=== PATIENT | female | born 1965 | race Two or more races ===

== ENCOUNTER 2018-02-27 00:46 | Inpatient (IN) | payer OTHER ==
[~2018-02-27] VITALS: Ht 154.9 cm; Wt 78.8 kg
[2018-02-27] MEDS ORDERED: SODIUM CHLORIDE 0.9% 1,000ML IVBOLUS ONE (01:30)
[2018-02-27 01:54] LABS: MEAN CORPUSCULAR HEMOGLOBIN 26.2 pg (27.0-34.8); MEAN CORPUSCULAR HGB CONC 32.1 g/dL (32.4-35.8); MEAN CORPUSCULAR VOLUME 81.7 fL (80-100); MEAN PLATELET VOLUME 10.6 fL (7.4-10.4); PLATELET COUNT 210 x10^3/uL (130-400); RED CELL DISTRIBUTION WIDTH 14.8 % (9.6-15.2)
[2018-02-27 02:02] LABS: ALANINE AMINOTRANSFERASE 16 U/L (12-78); ANION GAP 14 mmol/L (5-15); CALCIUM 8.9 mg/dL (8.5-10.1); CHLORIDE 94 mmol/L (98-107)
[2018-02-27 02:05] LABS: ALKALINE PHOSPHATASE 277 U/L (45-117); BILIRUBIN,TOTAL 0.6 mg/dL (0.2-1.0); TOTAL PROTEIN 6.7 g/dL (6.4-8.2)
[2018-02-27 02:09] LABS: MD YES
[2018-02-27 02:10] LABS: BAND#(MANUAL) 0.53 x10^3/uL; BANDS%(MANUAL) 3 % (0-7); LYMPH#(MANUAL) 0.36 x10^3/uL (1-3.4); LYMPHS% (MANUAL) 2 % (22-44); SEG#(MANUAL) 16.91 x10^3/uL (1.8-6.8); SEGS% (MANUAL) 95 % (42-75)
[2018-02-27 02:11] LABS: <PLATELET ESTIMATE> ADEQUATE; ANISOCYTOSIS 1+; LARGE PLATELETS 1+
[2018-02-27] MEDS ORDERED: INSULIN REGULAR 100 UNITS/ML, 3ML VIAL ONE (02:51)
[2018-02-27] MEDS ORDERED: INSULIN REGULAR 100 UNITS/ML, 3ML VIAL IVPush ONE (03:00)
[2018-02-27] MEDS ORDERED: SODIUM CHLORIDE 0.9% 1,000 ML IV ONE (03:08)
[2018-02-27] MEDS ORDERED: ONDANSETRON 2MG/ML, 2ML IVPush PRN (03:30)
[2018-02-27] MEDS ORDERED: MORPHINE SULFATE 4 MG/ML, 1ML IVPush PRN ×2 (03:30→05:00)
[2018-02-27 03:50] VITALS: BP 119/69
[2018-02-27] MEDS ORDERED: CEFTRIAXONE 1,000 MG in SODIUM CHLORIDE 0.9% 50 ML IV SCH (05:00)
[2018-02-27] MEDS ORDERED: GLUCAGON 1 MG IM PRN (05:30)
[2018-02-27] MEDS ORDERED: DEXTROSE 4 GM TAB.CHEW PO PRN (05:30)
[2018-02-27] MEDS ORDERED: DEXTROSE 50%, 50ML SYRINGE IVPush PRN (05:30)
[2018-02-27] MEDS: INSULIN LISPRO 100 UNITS/ML, PEN SQ-INSULIN SCH ×4 (06:07→21:54)
[2018-02-27 06:16] LABS: MEAN CORPUSCULAR HEMOGLOBIN 26.7 pg (27.0-34.8); MEAN CORPUSCULAR HGB CONC 32.1 g/dL (32.4-35.8); MEAN CORPUSCULAR VOLUME 83.1 fL (80-100); MEAN PLATELET VOLUME 10.7 fL (7.4-10.4); PLATELET COUNT 208 x10^3/uL (130-400); RED BLOOD COUNT 3.69 x10^6/uL (3.82-5.3); RED CELL DISTRIBUTION WIDTH 14.7 % (9.6-15.2)
[2018-02-27 06:31] LABS: ANION GAP 13 mmol/L (5-15); CALCIUM 8.5 mg/dL (8.5-10.1); CHLORIDE 100 mmol/L (98-107); CREATININE 1.47 mg/dL (0.55-1.02)
[2018-02-27] MEDS: PIPERACILLIN/TAZO/PMX 3.375GM 50 ML IV SCH ×3 (06:32→22:15)
[2018-02-27 06:49] LABS: BASOPHILS % (AUTO) 0 % (0-1); EOSINOPHILS % (AUTO) 0 % (1-7); LYMPHOCYTES # (AUTO) 0.58 x10^3/uL (1-3.4); LYMPHOCYTES % (AUTO) 3 % (22-44); MD SCAN; MONOCYTES % (AUTO) 5 % (2-9); NEUTROPHILS # (AUTO) 18.67 x10^3/uL (1.8-6.8); NEUTROPHILS % (AUTO) 92 % (42-75)
[2018-02-27 07:10] LABS: HEMOGLOBIN A1C 15.2 % (4.2-6.3)
[2018-02-27 07:44] VITALS: BP 122/74
[2018-02-27] MEDS: SODIUM CHLORIDE FLUSH 10ML SYR IVF SCH ×2 (09:00→21:00)
[2018-02-27 12:49] VITALS: BP 129/76
[2018-02-27] MEDS: ACETAMINOPHEN 325 MG TABLET PO PRN (18:13)
[2018-02-27] MEDS: ONDANSETRON 2MG/ML, 2ML IVPush PRN (18:13)
[2018-02-27 20:00] VITALS: BP 132/76
[2018-02-27] MEDS: INSULIN GLARGINE 100 UNITS/ML, PEN SQ-INSULIN SCH (21:54)
[2018-02-27 22:41] LABS: POTASSIUM,URINE RANDOM 55 mmol/L; SODIUM,URINE RANDOM 10 mmol/L
[2018-02-27 22:42] LABS: CHLORIDE,URINE RANDOM < 10 mmol/L
[2018-02-27 22:46] LABS: CULTURE INDICATED? YES; MICROSCOPIC INDICATED
[2018-02-28 01:50] VITALS: BP 130/77
[2018-02-28 06:03] LABS: MEAN CORPUSCULAR HEMOGLOBIN 27.1 pg (27.0-34.8); MEAN CORPUSCULAR VOLUME 82.1 fL (80-100); MEAN PLATELET VOLUME 11.2 fL (7.4-10.4); PLATELET COUNT 237 x10^3/uL (130-400); RED BLOOD COUNT 3.09 x10^6/uL (3.82-5.3); RED CELL DISTRIBUTION WIDTH 14.5 % (9.6-15.2)
[2018-02-28] MEDS: PIPERACILLIN/TAZO/PMX 3.375GM 50 ML IV SCH (06:13)
[2018-02-28 06:14] LABS: ALANINE AMINOTRANSFERASE 52 U/L (12-78); ALBUMIN 1.7 g/dL (3.4-5.0); ANION GAP 11 mmol/L (5-15); CALCIUM 8.2 mg/dL (8.5-10.1); CHLORIDE 96 mmol/L (98-107)
[2018-02-28 06:16] LABS: ALKALINE PHOSPHATASE 509 U/L (45-117); BILIRUBIN,TOTAL 0.8 mg/dL (0.2-1.0); CREATININE 2.16 mg/dL (0.55-1.02)
[2018-02-28 06:39] LABS: BASOPHILS % (AUTO) 0 % (0-1); EOSINOPHILS # (AUTO) 0.03 x10^3/uL (0-0.4); EOSINOPHILS % (AUTO) 0 % (1-7); LYMPHOCYTES % (AUTO) 6 % (22-44); MD SCAN; MONOCYTES # (AUTO) 1.09 x10^3/uL (0.2-0.8); MONOCYTES % (AUTO) 6 % (2-9); NEUTROPHILS # (AUTO) 17.09 x10^3/uL (1.8-6.8); NEUTROPHILS % (AUTO) 88 % (42-75)
[2018-02-28 06:46] VITALS: BP 128/76
[2018-02-28] MEDS: INSULIN LISPRO 100 UNITS/ML, PEN SQ-INSULIN SCH ×4 (08:36→20:15)
[2018-02-28] MEDS: SODIUM CHLORIDE 0.9% 1,000 ML IV SCH ×4 (08:36→22:30)
[2018-02-28] MEDS: SODIUM CHLORIDE FLUSH 10ML SYR IVF SCH ×2 (08:37→20:15)
[2018-02-28] MEDS: ACETAMINOPHEN 325 MG TABLET PO PRN ×2 (09:08→15:21)
[2018-02-28] MEDS: ONDANSETRON 2MG/ML, 2ML IVPush PRN ×2 (09:24→16:10)
[2018-02-28] MEDS ORDERED: CEFTRIAXONE 2 GM in SODIUM CHLORIDE 0.9% 50 ML IV SCH (12:30)
[2018-02-28 12:50] VITALS: BP 112/66
[2018-02-28 19:27] VITALS: BP 122/65
[2018-02-28] MEDS: INSULIN GLARGINE 100 UNITS/ML, PEN SQ-INSULIN SCH (20:15)
[2018-03-01 00:36] VITALS: BP 125/79
[2018-03-01] MEDS: ONDANSETRON 2MG/ML, 2ML IVPush PRN (02:12)
[2018-03-01] MEDS: ACETAMINOPHEN 325 MG TABLET PO PRN ×2 (05:08→21:06)
[2018-03-01 05:45] LABS: ANION GAP 11 mmol/L (5-15); CALCIUM 8.4 mg/dL (8.5-10.1); CHLORIDE 98 mmol/L (98-107); CREATININE 2.68 mg/dL (0.55-1.02)
[2018-03-01] MEDS: SODIUM CHLORIDE 0.9% 1,000 ML IV SCH ×4 (05:48→19:19)
[2018-03-01 06:13] LABS: BASOPHILS % (AUTO) 0 % (0-1); EOSINOPHILS # (AUTO) 0.01 x10^3/uL (0-0.4); EOSINOPHILS % (AUTO) 0 % (1-7); LYMPHOCYTES # (AUTO) 0.94 x10^3/uL (1-3.4); LYMPHOCYTES % (AUTO) 7 % (22-44); MD SCAN; MEAN CORPUSCULAR HGB CONC 32.6 g/dL (32.4-35.8); MEAN PLATELET VOLUME 10.4 fL (7.4-10.4); MONOCYTES % (AUTO) 3 % (2-9); NEUTROPHILS # (AUTO) 12.03 x10^3/uL (1.8-6.8); NEUTROPHILS % (AUTO) 90 % (42-75); PLATELET COUNT 269 x10^3/uL (130-400); RED BLOOD COUNT 3.43 x10^6/uL (3.82-5.3); RED CELL DISTRIBUTION WIDTH 15.2 % (9.6-15.2)
[2018-03-01] MEDS: INSULIN LISPRO 100 UNITS/ML, PEN SQ-INSULIN SCH ×4 (07:49→21:15)
[2018-03-01] MEDS: SODIUM CHLORIDE FLUSH 10ML SYR IVF SCH ×2 (07:51→21:06)
[2018-03-01 07:56] VITALS: BP 146/76
[2018-03-01] MEDS: ERTAPENEM 0.5 GM in SODIUM CHLORIDE 0.9% 50 ML IV SCH (12:45)
[2018-03-01 15:35] VITALS: BP 145/71
[2018-03-01 18:55] VITALS: BP 146/85
[2018-03-01] MEDS: INSULIN GLARGINE 100 UNITS/ML, PEN SQ-INSULIN SCH (21:15)
[2018-03-02 01:16] VITALS: BP 132/62
[2018-03-02] MEDS: SODIUM CHLORIDE 0.9% 1,000 ML IV SCH ×4 (04:30→17:03)
[2018-03-02 05:25] LABS: ANION GAP 10 mmol/L (5-15); CALCIUM 7.8 mg/dL (8.5-10.1); CHLORIDE 103 mmol/L (98-107); CREATININE 1.71 mg/dL (0.55-1.02)
[2018-03-02 05:46] LABS: BASOPHILS % (AUTO) 0 % (0-1); EOSINOPHILS # (AUTO) 0.02 x10^3/uL (0-0.4); EOSINOPHILS % (AUTO) 0 % (1-7); LYMPHOCYTES # (AUTO) 1.05 x10^3/uL (1-3.4); LYMPHOCYTES % (AUTO) 8 % (22-44); MD NO; MEAN CORPUSCULAR HEMOGLOBIN 27.5 pg (27.0-34.8); MEAN CORPUSCULAR HGB CONC 33.6 g/dL (32.4-35.8); MEAN PLATELET VOLUME 9.6 fL (7.4-10.4); MONOCYTES # (AUTO) 0.84 x10^3/uL (0.2-0.8); MONOCYTES % (AUTO) 7 % (2-9); NEUTROPHILS # (AUTO) 11.08 x10^3/uL (1.8-6.8); NEUTROPHILS % (AUTO) 85 % (42-75); PLATELET COUNT 311 x10^3/uL (130-400); RED BLOOD COUNT 3.05 x10^6/uL (3.82-5.3); RED CELL DISTRIBUTION WIDTH 15.1 % (9.6-15.2)
[2018-03-02 07:40] VITALS: BP 151/92
[2018-03-02] MEDS: INSULIN LISPRO 100 UNITS/ML, PEN SQ-INSULIN SCH ×4 (08:16→20:37)
[2018-03-02] MEDS: SODIUM CHLORIDE FLUSH 10ML SYR IVF SCH ×2 (08:16→20:37)
[2018-03-02] MEDS: DOCUSATE 100 MG CAPSULE PO PRN (08:17)
[2018-03-02] MEDS: ERTAPENEM 0.5 GM in SODIUM CHLORIDE 0.9% 50 ML IV SCH (11:52)
[2018-03-02 12:11] VITALS: BP 129/82
[2018-03-02] MEDS ORDERED: LIDOCAINE-MPF 1%, 2ML ONE (13:40)
[2018-03-02 20:19] VITALS: BP 152/91
[2018-03-02] MEDS: INSULIN GLARGINE 100 UNITS/ML, PEN SQ-INSULIN SCH (20:37)
[2018-03-02] MEDS: ACETAMINOPHEN 325 MG TABLET PO PRN (22:56)
[2018-03-03] MEDS: SODIUM CHLORIDE 0.9% 1,000 ML IV SCH ×4 (00:30→17:25)
[2018-03-03 00:54] VITALS: BP 149/83
[2018-03-03 06:56] VITALS: BP 166/89
[2018-03-03 08:39] LABS: MEAN CORPUSCULAR HGB CONC 34.5 g/dL (32.4-35.8); MEAN CORPUSCULAR VOLUME 81.3 fL (80-100); MEAN PLATELET VOLUME 8.8 fL (7.4-10.4); PLATELET COUNT 400 x10^3/uL (130-400); RED BLOOD COUNT 2.91 x10^6/uL (3.82-5.3)
[2018-03-03 08:40] LABS: HCT (SEDRATE) 23.6 % (34.6-47.8)
[2018-03-03 08:41] LABS: ALANINE AMINOTRANSFERASE 30 U/L (12-78); ALBUMIN 1.5 g/dL (3.4-5.0); ANION GAP 7 mmol/L (5-15); CHLORIDE 106 mmol/L (98-107); CREATININE 0.98 mg/dL (0.55-1.02)
[2018-03-03] MEDS: INSULIN LISPRO 100 UNITS/ML, PEN SQ-INSULIN SCH ×4 (08:44→20:16)
[2018-03-03] MEDS: INSULIN GLARGINE 100 UNITS/ML, PEN SQ-INSULIN SCH ×2 (08:44→20:16)
[2018-03-03] MEDS: SODIUM CHLORIDE FLUSH 10ML SYR IVF SCH ×2 (08:46→20:16)
[2018-03-03 08:48] LABS: ALKALINE PHOSPHATASE 813 U/L (45-117); BILIRUBIN,TOTAL 0.4 mg/dL (0.2-1.0); TOTAL PROTEIN 5.6 g/dL (6.4-8.2)
[2018-03-03 08:57] LABS: BASOPHILS # (AUTO) 0.06 x10^3/uL (0-0.1); BASOPHILS % (AUTO) 0 % (0-1); EOSINOPHILS # (AUTO) 0.06 x10^3/uL (0-0.4); EOSINOPHILS % (AUTO) 0 % (1-7); LYMPHOCYTES # (AUTO) 0.89 x10^3/uL (1-3.4); LYMPHOCYTES % (AUTO) 6 % (22-44); MD SCAN; MONOCYTES # (AUTO) 0.89 x10^3/uL (0.2-0.8); MONOCYTES % (AUTO) 6 % (2-9); NEUTROPHILS # (AUTO) 12.71 x10^3/uL (1.8-6.8); NEUTROPHILS % (AUTO) 87 % (42-75)
[2018-03-03] MEDS: GUAIFENESIN/COD200MG-20MG/10ML LIQUID PO PRN ×2 (09:22→23:02)
[2018-03-03] MEDS: MICAFUNGIN 100 MG in SODIUM CHLORIDE 0.9% 100 ML IV SCH (11:05)
[2018-03-03] MEDS: ERTAPENEM 0.5 GM in SODIUM CHLORIDE 0.9% 50 ML IV SCH (12:10)
[2018-03-03 12:17] VITALS: BP 158/84
[2018-03-03] MEDS ORDERED: CEFTRIAXONE 2 GM in SODIUM CHLORIDE 0.9% 50 ML IV SCH (13:00)
[2018-03-03 18:38] VITALS: BP 166/87
[2018-03-03] MEDS: DOCUSATE 100 MG CAPSULE PO PRN (19:09)
[2018-03-03] MEDS: ACETAMINOPHEN 325 MG TABLET PO PRN (23:02)
[2018-03-04] VITALS (7 sets, daily range): BP systolic 158–188; BP diastolic 77–100
[2018-03-04] MEDS: SODIUM CHLORIDE 0.9% 1,000 ML IV SCH ×2 (01:34→07:26)
[2018-03-04] MEDS: SODIUM CHLORIDE FLUSH 10ML SYR IVF SCH ×2 (08:18→20:56)
[2018-03-04] MEDS: INSULIN LISPRO 100 UNITS/ML, PEN SQ-INSULIN SCH ×4 (08:19→20:57)
[2018-03-04] MEDS: INSULIN GLARGINE 100 UNITS/ML, PEN SQ-INSULIN SCH ×2 (08:19→20:57)
[2018-03-04] MEDS: DOCUSATE 100 MG CAPSULE PO PRN ×2 (09:44→21:19)
[2018-03-04] MEDS: MICAFUNGIN 100 MG in SODIUM CHLORIDE 0.9% 100 ML IV SCH (09:44)
[2018-03-04] MEDS ORDERED: INSU100I13 SQ-INSULIN (10:56)
[2018-03-04] MEDS ORDERED: ERTA1VIA IV (10:56)
[2018-03-04] MEDS ORDERED: METO25TA35 PO (10:56)
[2018-03-04] MEDS ORDERED: METF500T5 PO (10:56)
[2018-03-04] MEDS: ERTAPENEM 1 GM in SODIUM CHLORIDE 0.9% 50 ML IV SCH (12:46)
[2018-03-04] MEDS: FLUCONAZOLE 200 MG TABLET PO SCH (15:01)
[2018-03-04] MEDS: METOPROLOL TARTRATE 25 MG TABLET PO SCH ×2 (15:01→15:58)
[2018-03-04] MEDS ORDERED: ENALAPRILAT 1.25 MG/ML, 2ML IV PRN ×2 (20:00→23:00)
[2018-03-04] MEDS: GUAIFENESIN/COD200MG-20MG/10ML LIQUID PO PRN (20:56)
[2018-03-04] MEDS: ACETAMINOPHEN 325 MG TABLET PO PRN (20:56)
[2018-03-04] MEDS ORDERED: LABETALOL 5MG/ML, 20ML IVPush PRN (23:30)
[2018-03-05 00:57] VITALS: BP 173/80
[2018-03-05] MEDS ORDERED: ENALAPRILAT 1.25 MG/ML, 2ML IV PRN (02:00)
[2018-03-05 05:02] VITALS: BP 166/85
[2018-03-05] MEDS: METOPROLOL TARTRATE 25 MG TABLET PO SCH (05:04)
[2018-03-05 06:46] VITALS: BP 170/96
[2018-03-05] MEDS: FLUCONAZOLE 200 MG TABLET PO SCH (08:18)
[2018-03-05] MEDS: INSULIN LISPRO 100 UNITS/ML, PEN SQ-INSULIN SCH ×2 (08:19→12:24)
[2018-03-05] MEDS: SODIUM CHLORIDE FLUSH 10ML SYR IVF SCH (08:19)
[2018-03-05] MEDS: INSULIN GLARGINE 100 UNITS/ML, PEN SQ-INSULIN SCH (08:19)
[2018-03-05] MEDS: DOCUSATE 100 MG CAPSULE PO PRN (08:35)
[2018-03-05] MEDS ORDERED: FLUCONAZOLE 200 MG TABLET PO SCH ×2 (09:00→15:00)
[2018-03-05] MEDS ORDERED: LISI-167 PO (10:43)
[2018-03-05] MEDS: ERTAPENEM 1 GM in SODIUM CHLORIDE 0.9% 50 ML IV SCH (12:23)
[2018-03-05] MEDS: SODIUM CHLORIDE 0.9% 1,000 ML IV SCH (12:24)
[2018-03-05 13:02] VITALS: BP 189/94
== END 2018-03-05 14:45 | disposition home or self-care (01) | DRG 871 ==
LOC: ED 01:21 → EDIP 03:08 → 4EST 03:46 → DCLOUNGE 03-05 14:25
PROVIDERS: ADMIT Internal Medicine; ATTEND Family Medicine
PROC: 02HV33Z Insertion of Infusion Device into Superior Vena Cava, Percutaneous Approach (ICD-10-PCS; principal; 2018-03-02)
PROC: B548ZZA Ultrasonography of Superior Vena Cava, Guidance (ICD-10-PCS; 2018-03-02)
DX: A41.59 Other Gram-negative sepsis (principal); N15.1 Renal and perinephric abscess; E43 Unspecified severe protein-calorie malnutrition; N17.0 Acute kidney failure with tubular necrosis; E87.1 Hypo-osmolality and hyponatremia; N13.6 Pyonephrosis; E11.65 Type 2 diabetes mellitus with hyperglycemia; E11.22 Type 2 diabetes mellitus with diabetic chronic kidney disease; E86.0 Dehydration; E87.8 Other disorders of electrolyte and fluid balance, not elsewhere classified; D63.8 Anemia in other chronic diseases classified elsewhere; N18.9 Chronic kidney disease, unspecified; N30.81 Other cystitis with hematuria; N14.1 Nephropathy induced by other drugs, medicaments and biological substances; Z90.49 Acquired absence of other specified parts of digestive tract; Z83.3 Family history of diabetes mellitus; Z82.49 Family history of ischemic heart disease and other diseases of the circulatory system; Z79.2 Long term (current) use of antibiotics; Z68.32 Body mass index [BMI] 32.0-32.9, adult; Z79.899 Other long term (current) drug therapy; Z79.1 Long term (current) use of non-steroidal anti-inflammatories (NSAID)
CPT/HCPCS: 36415; 36569; 71046; 76770; 76937; 77001; 80048; 80053; 81001; 82436; 82570; 82947; 82962; 83036; 83605; 83690; 84133; 84145; 84300; 85025; 85651; 86140; 87040; 87077; 87086; 87106; 87186; 96361; 96374; J0696; J1335; J2248; J2405; J2543; J3490; C1751; J1815; J7030